=== PATIENT | male | born 1955 | race Two or more races ===

== ENCOUNTER → 2022-01-26 | Day surgery (SDC) | payer OTHER ==
[2022-01-25 09:03] LABS: INR 1.05 (0.9-1.15)
[2022-01-25 12:56] LABS: Basophils # (auto) 0 10 ^3/uL (0-0.2); Eosinophils # (auto) 0.1 10 ^3/uL (0-0.8); Hemoglobin 13.3 g/dL (13.5-17.5); Monocytes # (auto) 0.4 10 ^3/uL (0-1.3); Neutrophils # (auto) 2.9 10 ^3/uL (1.6-8.6); Red Cell Distribution Width 14.5 % (11.8-14.3)
[2022-01-25 13:00] LABS: Basophils % (auto) 0.8 % (0.0-2.0); Eosinophils % (auto) 1.7 % (0.0-7.0); Hematocrit 39.3 % (41.0-53.0); Lymphocytes # (auto) 1.7 10 ^3/uL (0.4-5.4); Lymphocytes % (auto) 33.7 % (10.0-50.0); Mean Corpuscular Hemoglobin 26.3 pg (28.0-32.0); Mean Corpuscular Hgb Conc. 33.9 g/dL (32.0-36.0); Mean Corpuscular Volume 77.6 fL (80.0-100.0); Monocytes % (auto) 7.1 % (0.0-12.0); Neutrophils % (auto) 56.7 % (37.0-80.0); Nucleated Red Blood Cells % 0.6 %; Red Blood Cells 5.06 10^6/uL (4.5-5.90); White Blood Cell 5.2 10^3/uL (4.4-10.8)
[2022-01-25 13:08] LABS: Albumin 3.7 g/dL (3.4-5.0); BUN/Creatinine Ratio 11.8; Calcium 9.1 mg/dL (8.5-10.1); Potassium 4.3 mmol/L (3.5-5.1)
[2022-01-25 13:11] LABS: Bilirubin, Total 0.4 mg/dL (0.2-1.0); Total Protein 6.6 g/dL (6.4-8.2)
[~2022-01-26] VITALS: Ht 177.8 cm; Wt 104.3 kg
[~2022-01-26] MED LIST: ATOR10TA PO; DULA0.5I SC; ESOM40CA39 PO; GLIP5TAB12 PO; LOSA25TA38 PO; MONT-8 OR; PIOG1TAB51 OR; SODIUM CHLORIDE LOCK 10 ML ONE; TAMS0.4C36 PO
[2022-01-26] MEDS: fentaNYL CITRATE 100 MCG/2 ML VL ONE ×2 (10:28→10:31)
[2022-01-26] MEDS: MIDAZOLAM HCL 5 MG/ML-1ML VIAL ONE ×3 (10:28→10:39)
[2022-01-26] MEDS: diphenhdrAMINE HCL 50 MG/1 ML VL ONE ×2 (10:30→10:33)
[2022-01-26 11:30] VITALS: BP 130/79
== END | disposition home or self-care (01) ==
LOC: GI 09:22
PROVIDERS: ATTEND Internal Medicine Gastroenterology
DX: K59.00 Constipation, unspecified (principal); D12.4 Benign neoplasm of descending colon; K64.8 Other hemorrhoids; I10 Essential (primary) hypertension; E11.9 Type 2 diabetes mellitus without complications; E78.5 Hyperlipidemia, unspecified; K21.9 Gastro-esophageal reflux disease without esophagitis; J45.909 Unspecified asthma, uncomplicated; Z98.890 Other specified postprocedural states; Z79.899 Other long term (current) drug therapy; Z20.822 Contact with and (suspected) exposure to COVID-19
CPT/HCPCS: 36415; 45385; 80053; 82962; 85025; 85610; 85730; 88305; J1200; J2250; J3010; U0003; 99153; G0500